=== PATIENT | male | born 1950 | race Caucasian/White ===

== ENCOUNTER → 2018-06-22 20:26 | Outpatient (REF) | payer MEDICARE, SELFPAY ==
[2018-06-22 20:50] LABS: Add Manual Diff / Slide Review NO; Basophils Absolute Auto 0 /uL (0-100); Basophils Percent Auto 0.9 % (0-2); Eosinophils Absolute Auto 200 /uL (0-450); Eosinophils Percent Auto 6.9 % (2-4); Hematocrit 40.7 % (41-53); Hemoglobin 13.9 g/dL (13.5-17.5); Lymphocytes Absolute Auto 1200 /uL (1100-4500); Mean Corpuscular HGB Conc 34.2 % (30-36); Mean Corpuscular Hemoglobin 36.5 PG (26-34); Mean Corpuscular Volume 106.6 fL (80-100); Monocytes Absolute Auto 300 /uL (0-900); Monocytes Percent Auto 7.8 % (3-14); Neutrophils Absolute Auto 1600 /uL (1500-7000); Neutrophils Percent Auto 48.4 % (50-75); Platelet Count 137 X10^3/uL (150-400); Red Blood Cell Count 3.82 X10^6/uL (4.5-5.9); Red Cell Distribution Width 13.8 % (11.6-14.8); White Blood Cell Count 3.3 X10^3/uL (4.5-11.0)
[2018-06-22 21:01] LABS: Alanine Aminotransferase 121 IU/L (21-72); Albumin 4.3 g/dL (3.5-5.0); Albumin Globulin Ratio 1.1 (1.0-2.8); Alkaline Phosphatase 55 U/L (38-126); Aspartate Aminotransferase 122 IU/L (17-59); Bilirubin Total 0.8 mg/dL (0.2-1.3); Blood Urea Nitrogen 18 mg/dL (9-20); Calcium 9.6 mg/dL (8.4-10.2); Carbon Dioxide 29 mmol/L (22-32); Chloride 103 mmol/L (98-107); Cholesterol 130 mg/dL (140-199); Estimated Glomerular Filt Rate > 60.0 mL/min (>60); Globulin 3.9 g/dL (1.7-4.1); Glucose 135 mg/dL (80-110); HDL Cholesterol 27 mg/dL (40-60); HEMOLYSIS < 15 (0-50); LDL Cholesterol Calculated 76 mg/dL (<100); Potassium 4.6 mmol/L (3.4-5.1); Sodium 142 mmol/L (137-145); Total Protein 8.2 g/dL (6.3-8.2); Triglycerides 137 mg/dL (35-150)
[2018-06-22 21:27] LABS: T7 (Free Thyroxine Index) 3.32 (1.65-3.89); Triiodothryronine T3 Uptake 25.9 % (23.5-40.5)
[2018-06-22 21:41] LABS: Thyroid Stimulating Hormone 4.58 uIU/mL (0.47-4.68)
== END ==
LOC: LAB 20:26
PROVIDERS: Visit Provider Family Medicine Geriatric Medicine
DX: E78.5 Hyperlipidemia, unspecified (principal); E05.90 Thyrotoxicosis, unspecified without thyrotoxic crisis or storm; I10 Essential (primary) hypertension
CPT/HCPCS: 36415; 80053; 80061; 84436; 84443; 84479; 85025

== ENCOUNTER → 2019-05-30 10:26 | Outpatient (CLI) | payer MEDICARE, OTHER, SELFPAY | PROVIDERS: PCP Family Medicine Geriatric Medicine; Referring Provider Internal Medicine Cardiovascular Disease; Visit Provider Family Medicine | DX: I70.211 Atherosclerosis of native arteries of extremities with intermittent claudication, right leg (principal); L97.511 Non-pressure chronic ulcer of other part of right foot limited to breakdown of skin; G60.9 Hereditary and idiopathic neuropathy, unspecified; Z79.01 Long term (current) use of anticoagulants; Z79.82 Long term (current) use of aspirin; I25.10 Atherosclerotic heart disease of native coronary artery without angina pectoris; I25.5 Ischemic cardiomyopathy; Z72.0 Tobacco use; Z95.810 Presence of automatic (implantable) cardiac defibrillator | CPT/HCPCS: 97597; 99203; 99213 ==

== ENCOUNTER → 2019-06-13 08:34 | Outpatient (CLI) | payer MEDICARE, OTHER, SELFPAY | PROVIDERS: PCP Family Medicine Geriatric Medicine; Referring Provider Dermatology; Visit Provider Family Medicine | DX: I70.211 Atherosclerosis of native arteries of extremities with intermittent claudication, right leg (principal); L97.511 Non-pressure chronic ulcer of other part of right foot limited to breakdown of skin; G60.9 Hereditary and idiopathic neuropathy, unspecified; Z79.01 Long term (current) use of anticoagulants; Z79.82 Long term (current) use of aspirin | CPT/HCPCS: 97597 ==

== ENCOUNTER → 2019-08-29 10:14 | Outpatient (CLI) | payer MEDICARE, OTHER, SELFPAY | PROVIDERS: PCP Family Medicine Geriatric Medicine; Referring Provider Family Medicine Geriatric Medicine; Visit Provider Family Medicine | DX: I70.211 Atherosclerosis of native arteries of extremities with intermittent claudication, right leg (principal); L97.511 Non-pressure chronic ulcer of other part of right foot limited to breakdown of skin; G60.9 Hereditary and idiopathic neuropathy, unspecified; L84 Corns and callosities; M79.671 Pain in right foot; I75.023 Atheroembolism of bilateral lower extremities | CPT/HCPCS: 11055; 99213; 99214 ==

== ENCOUNTER → 2019-09-19 10:28 | Outpatient (CLI) | payer MEDICARE, OTHER, SELFPAY | PROVIDERS: PCP Family Medicine Geriatric Medicine; Referring Provider Family Medicine Geriatric Medicine; Visit Provider Family Medicine | DX: I70.211 Atherosclerosis of native arteries of extremities with intermittent claudication, right leg (principal); L97.515 Non-pressure chronic ulcer of other part of right foot with muscle involvement without evidence of necrosis; M79.671 Pain in right foot; Z72.0 Tobacco use; I75.023 Atheroembolism of bilateral lower extremities; G60.9 Hereditary and idiopathic neuropathy, unspecified | CPT/HCPCS: 73630; 87070; 87077; 87186; 87205; 97597; 99214 ==

== ENCOUNTER → 2019-09-19 11:52 | Outpatient (CLI) | payer MEDICARE, OTHER, SELFPAY ==
--- NOTE | 2019-09-19 | DI.RAD.S_ITS ---
PROCEDURE: XR FOOT RT MIN 3V INDICATIONS: Non-pressure chronic ulcer of other part of right foot TECHNIQUE: 3 views of the foot were acquired. COMPARISON: Outside Facility, [facility], XR FOOT 3V RIGHT, 09/04/2019, 12:09. FINDINGS: Bones: No fractures or dislocations. No suspicious bony lesions. No periosteal reaction or erosion identified. Soft tissues: Mild heterogeneity of the soft tissues at the 5th digit MTP joint. No tibiotalar joint effusion. Achilles tendon appears normal. IMPRESSION: No erosion or periosteal reaction identified. Consider 3 phase bone scan for increased sensitivity for osteomyelitis if clinically suspected. Dictated by: Manuel Saravia M.D. on 09/19/2019 at 12:52 Approved by: Manuel Saravia M.D. on 09/19/2019 at 12:54
== END ==
PROVIDERS: PCP Family Medicine Geriatric Medicine; Referring Provider Family Medicine; Visit Provider Family Medicine
DX: L97.511 Non-pressure chronic ulcer of other part of right foot limited to breakdown of skin (principal); I70.211 Atherosclerosis of native arteries of extremities with intermittent claudication, right leg; M79.671 Pain in right foot
CPT/HCPCS: 73630